=== PATIENT | male | born 1980 | race African-American/Black ===

== ENCOUNTER 2017-04-30 14:50 | Emergency (ER) | payer OTHER ==
[~2017-04-30] VITALS: Ht 177.8 cm; Wt 79.4 kg
[2017-04-30] MEDS ORDERED: OXYCODONE/APAP 5-325 MG TABLET PO ONE (15:15)
[2017-04-30] MEDS ORDERED: OXYCODONE/APAP 5-325 MG TABLET ONE (15:23)
[2017-04-30] MEDS ORDERED: LIDOCAINE 1%-EPI 1:100,000 20 ML VIAL TP ONE (15:30)
[2017-04-30] MEDS ORDERED: LIDOCAINE 2%-EPI 1:100,000 20 ML VIAL TP ONE (15:45)
[2017-04-30] MEDS ORDERED: LIDOCAINE 2%-EPI 1:100,000 20 ML VIAL ONE (15:46)
--- NOTE | 2017-04-30 16:17 | NUR ---
PATIENT WAS SEEN BY . DC, RX (INCLUDING PERCOCET PRECAUTIONS) AND FOLLOW UP INSTRUCTIONS GIVEN AND EXPLAINED TO PATIENT WHO STATES HE UNDERSTANDS ALL INSTRUCTIONS. PATIENT STATES HE WILL NOT DRIVE WHILE ON PERCOCET AND NO ALCOHOL
== END 2017-04-30 16:20 | disposition home or self-care (01) ==
LOC: ER 14:50
DX: K60.3 Anal fistula (principal)
CPT/HCPCS: 99283; A4663; J3490

== ENCOUNTER 2017-09-18 13:10 | Emergency (ER) | payer OTHER ==
[~2017-09-18] VITALS: Ht 177.8 cm; Wt 79.4 kg
[2017-09-18] MEDS ORDERED: ACETAMINOPHEN ES 500 MG TABLET PO ONE (13:30)
--- NOTE | 2017-09-18 13:45 | NUR ---
PT IS IN ROOM #2B. DR LAUREN EVALUATED THE PT.
[2017-09-18] MEDS ORDERED: ACETAMINOPHEN ES 500 MG TABLET ONE (13:51)
[2017-09-18 14:10] VITALS: BP 142/78
--- NOTE | 2017-09-18 14:10 | NUR ---
PT WAS D/C TO HOME. D/C INSTRUCTIONS GIVEN TO THE P.
== END 2017-09-18 14:11 | disposition home or self-care (01) ==
LOC: ER 13:18
DX: J18.9 Pneumonia, unspecified organism (principal); R91.1 Solitary pulmonary nodule; Z87.891 Personal history of nicotine dependence
CPT/HCPCS: 71045; 99283; A4663

== ENCOUNTER 2017-09-22 11:48 | Emergency (ER) | payer OTHER ==
[~2017-09-22] VITALS: Ht 177.8 cm; Wt 79.4 kg
== END 2017-09-22 12:14 | disposition home or self-care (01) ==
LOC: ER 11:50
DX: J11.1 Influenza due to unidentified influenza virus with other respiratory manifestations (principal); J40 Bronchitis, not specified as acute or chronic
CPT/HCPCS: A4663